=== PATIENT | female | born 1945 | race African-American/Black ===

== ENCOUNTER 2020-10-11 11:10 | Emergency (ER) | payer OTHER ==
[~2020-10-11] VITALS: Ht 167.6 cm; Wt 77.0 kg
[2020-10-11] MEDS ORDERED: SODIUM CHLORIDE 0.9% 1,000 ML IV ONE ×2 (11:45→14:15)
[2020-10-11] MEDS ORDERED: CEFTRIAXONE 1 G PREMIX 50 ML IV ONE (12:00)
[2020-10-11] MEDS ORDERED: VANCOMYCIN 1 G PREMIX 200 ML IV ONE (12:00)
[2020-10-11 12:55] LABS: BASOPHILS % 0.5 % (0.0-2.0); EOSINOPHILS % 0.1 % (0.0-5.0); HEMATOCRIT. 26.7 % (36.0-48.0); HEMOGLOBIN. 8.7 g/dL (12.0-16.0); LYMPHOCYTES % 7.2 % (20.0-50.0); MEAN CORPUSCULAR HEMOGLOBIN 29.2 pg (28.0-32.0); MEAN CORPUSCULAR VOLUME 89.4 fL (81.0-99.0); MEAN PLATELET VOLUME 8.4 fl (7.4-10.4); MONOCYTES % 8.4 % (2.0-8.0); NEUTROPHILS % 83.8 % (40.0-76.0); PLATELET 357 x1000/uL (130-400); RED BLOOD CELL COUNT 2.98 mill/uL (4.2-5.4); RED CELL DISTRIBUTION WIDTH 13.5 % (11.6-14.6)
[2020-10-11 13:01] LABS: CHLORIDE 100 mEq/L (98-107)
[2020-10-11 13:05] LABS: ETHANOL BLOOD < 10 mg/dL
[2020-10-11 14:30] VITALS: BP 133/83
== END 2020-10-11 16:05 | disposition short-term general hospital (02) ==
LOC: ER 11:51 → CANBEDREQ 10-12 07:44
DX: E87.5 Hyperkalemia (principal); R53.1 Weakness; M86.8X6 Other osteomyelitis, lower leg; E11.9 Type 2 diabetes mellitus without complications; E78.00 Pure hypercholesterolemia, unspecified
CPT/HCPCS: 36415; 71045; 73630; 80053; 80320; 82962; 83605; 85025; 87040; 87070; 87205; 93005; 96361; 96365; 96368; 99285; J0696; J3370; J7030; G0480